=== PATIENT | female | born 1985 | race Caucasian/White ===

== ENCOUNTER 2017-10-08 20:57 | Outpatient (CLI) | payer MEDICAID ==
[2017-10-08] MEDS: LACTATED RINGER'S 1,000 ML IV ×2 (22:04→22:45)
[2017-10-08] MEDS: ACETAMINOPHEN 325 MG TAB PO (22:16)
[2017-10-08 23:21] LABS: ADD MAN DIFF? NO
[2017-10-08 23:25] LABS: WHITE BLOOD COUNT 10.7 10^3/ul (4.8-10.8)
[2017-10-08 23:25] LABS: BASOPHILS % 0.4 % (0.0-2.0); EOSINOPHILS # 0.1 10^3/ul (0.0-0.5); EOSINOPHILS % 1.2 % (0.0-7.0); HEMATOCRIT 32.2 % (37.0-47.0); HEMOGLOBIN 10.9 g/dl (12.0-16.0); LYMPHOCYTES # 0.7 10^3/ul (0.8-2.9); LYMPHOCYTES % 6.6 % (15.0-51.0); MEAN CORPUSCULAR HGB CONC 33.9 g/dl (32.0-37.0); MEAN CORPUSCULAR VOLUME 91.5 fl (82.0-101.0); MONOCYTE # 0.7 10^3/ul (0.3-0.9); MONOCYTES % 6.2 % (0.0-11.0); NEUTROPHIL # 9.1 10^3/ul (1.6-7.5); NEUTROPHILS % 84.5 % (39.0-77.0); PLATELET COUNT 271 10^3/UL (140-415); RED BLOOD COUNT 3.52 10^6/ul (4.20-5.40); RED CELL DISTRIBUTION WIDTH 12.8 % (11.5-14.5)
[2017-10-08 23:32] LABS: ADD UMIC YES; UR ASCORBIC ACID NEGATIVE (NEGATIVE); UR BACTERIA FEW /HPF (NONE SEEN); UR BILIRUBIN (Dip) NEGATIVE (NEGATIVE); UR BLOOD (Dip) NEGATIVE (NEGATIVE); UR CLARITY SLIGHTLY CLOUDY (CLEAR); UR COLOR YELLOW (YELLOW); UR GLUCOSE (Dip) NEGATIVE (NEGATIVE); UR KETONES (Dip) NEGATIVE (NEGATIVE); UR LEUKOCYTE ESTERASE (Dip) 1+ Leu/ul (NEGATIVE); UR MUCUS FEW /HPF (NONE SEEN); UR NITRITE (Dip) NEGATIVE (NEGATIVE); UR RBC 0 /HPF (0-5); UR SQUAMOUS EPITHELIAL CELL FEW /HPF (FEW); UR TOTAL PROTEIN (Dip) NEGATIVE (NEGATIVE); UR UROBILINOGEN (Dip) NEGATIVE (NEGATIVE); UR WBC 4 /HPF (0-5)
[2017-10-08 23:55] LABS: ALANINE AMINOTRANSFERASE 36 IU/L (13-69); ALBUMIN 3.5 g/dl (3.3-4.9); ALBUMIN/GLOBULIN RATIO 1.09; ALKALINE PHOSPHATASE 148 IU/L (42-121); ANION GAP 13 (8-16); ASPARTATE AMINO TRANSFERASE 25 IU/L (15-46); BILIRUBIN,INDIRECT 0.4 mg/dl (0-1.1); BILIRUBIN,TOTAL 0.4 mg/dl (0.2-1.3); BLOOD UREA NITROGEN 7 mg/dl (7-20); CALCIUM 8.5 mg/dl (8.4-10.2); CARBON DIOXIDE 24 mmol/L (21-31); CHLORIDE 104 mmol/L (97-110); CREATININE 0.69 mg/dl (0.44-1.00); GLUCOSE 85 mg/dl (70-220); POTASSIUM 3.8 mmol/L (3.5-5.1); SODIUM 137 mmol/L (135-144); TOTAL PROTEIN 6.7 g/dl (6.1-8.1)
== END 2017-10-09 01:13 | disposition home or self-care (01) ==
LOC: OBT 20:57 → L-D 20:59
DX: O26.892 Other specified pregnancy related conditions, second trimester (principal); Z3A.28 28 weeks gestation of pregnancy; R50.9 Fever, unspecified
CPT/HCPCS: 36415; 76818; 80053; 81001; 85025; 87040; 87086; 96360; 96361

== ENCOUNTER 2017-10-10 19:05 | Outpatient (CLI) | payer MEDICAID ==
[2017-10-10] MEDS: LACTATED RINGER'S 1,000 ML IV ×2 (20:02→20:56)
[2017-10-10] MEDS: ACETAMINOPHEN 325 MG TAB PO (20:04)
[2017-10-10] MEDS: AZITHROMYCIN 500MG/NS (PMX) 250 ML IVPB (23:34)
[2017-10-11] MEDS: ACETAMINOPHEN 325 MG TAB PO (00:03)
[2017-10-11] MEDS: GUAIFENESIN/DM 5ML CUP PO (00:57)
== END 2017-10-11 02:06 | disposition home or self-care (01) ==
LOC: OBT 19:05 → L-D 19:07
DX: O26.892 Other specified pregnancy related conditions, second trimester (principal); Z3A.28 28 weeks gestation of pregnancy; J06.9 Acute upper respiratory infection, unspecified; J11.1 Influenza due to unidentified influenza virus with other respiratory manifestations
CPT/HCPCS: 36415; 76818; 96360; 96361; 96366

== ENCOUNTER 2017-12-11 15:29 | Outpatient (CLI) | payer MEDICAID | END 2017-12-11 16:35 | disposition home or self-care (01) | LOC: OBT 15:29 → L-D 15:33 → OBT 16:35 | DX: O36.5930 Maternal care for other known or suspected poor fetal growth, third trimester, not applicable or unspecified (principal); Z3A.37 37 weeks gestation of pregnancy | CPT/HCPCS: 76815; 76818 ==

== ENCOUNTER 2017-12-24 12:19 | Outpatient (CLI) | payer MEDICAID ==
[2017-12-24] MEDS: TERBUTALINE 1 MG/ML INJ SC (13:23)
== END 2017-12-24 15:02 | disposition home or self-care (01) ==
LOC: OBT 12:19 → L-D 12:20 → OBT 15:02
DX: O62.9 Abnormality of forces of labor, unspecified (principal); Z3A.37 37 weeks gestation of pregnancy
CPT/HCPCS: 36415; 76818; 96372

== ENCOUNTER 2017-12-26 03:55 | Inpatient (IN) | payer MEDICAID ==
[2017-12-26] MEDS ORDERED: OXYTOCIN 30 UNITS/LR 500 ML IV (04:30)
[2017-12-26] MEDS ORDERED: IBUPROFEN 600 MG TAB PO (04:30)
[2017-12-26] MEDS ORDERED: CARBOPROST 250 MCG INJ IM (04:30)
[2017-12-26] MEDS ORDERED: BUTORPHANOL 2 MG INJ IV (04:30)
[2017-12-26] MEDS ORDERED: MISOPROSTOL 200 MCG TAB PR (04:30)
[2017-12-26] MEDS ORDERED: METHYLERGONOVINE 0.2 MG INJ IM (04:30)
[2017-12-26] MEDS ORDERED: LIDOCAINE 1% (MPF) 30 ML INJ INJ (04:30)
[2017-12-26 04:56] LABS: ADD MAN DIFF? NO
[2017-12-26 04:58] LABS: BASOPHILS % 0.3 % (0.0-2.0); EOSINOPHILS # 0.1 10^3/ul (0.0-0.5); EOSINOPHILS % 0.7 % (0.0-7.0); HEMATOCRIT 38.2 % (37.0-47.0); HEMOGLOBIN 12.8 g/dl (12.0-16.0); LYMPHOCYTES # 2.2 10^3/ul (0.8-2.9); LYMPHOCYTES % 19.5 % (15.0-51.0); MEAN CORPUSCULAR HEMOGLOBIN 30.5 pg (29.0-33.0); MEAN CORPUSCULAR HGB CONC 33.5 g/dl (32.0-37.0); MONOCYTE # 0.6 10^3/ul (0.3-0.9); MONOCYTES % 5.3 % (0.0-11.0); NEUTROPHIL # 8.4 10^3/ul (1.6-7.5); NEUTROPHILS % 73.8 % (39.0-77.0); PLATELET COUNT 283 10^3/UL (140-415); RED CELL DISTRIBUTION WIDTH 13.7 % (11.5-14.5)
[2017-12-26 04:58] LABS: WHITE BLOOD COUNT 11.4 10^3/ul (4.8-10.8)
[2017-12-26] MEDS: LACTATED RINGER'S 1,000 ML IV ×3 (05:04→05:58)
[2017-12-26] MEDS: AMPICILLIN 2 GM/NS (PMX) 100 ML IV (05:05)
[2017-12-26 05:18] LABS: INR 0.86; PARTIAL THROMBOPLASTIN TIME 26.9 Sec (25.0-35.0); PROTIME 11.8 Sec (11.9-14.9); PT RATIO 0.9
[2017-12-26] MEDS ORDERED: FENTAnyl 2MCG/ML-ROPIV 0.2% 100 ML (05:43)
[2017-12-26] MEDS ORDERED: HYDROmorphONE 0.5 MG/0.5 ML SYG IV ×2 (06:00)
[2017-12-26] MEDS ORDERED: ZOLPIDEM 5 MG TAB PO (06:00)
[2017-12-26] MEDS ORDERED: KETOROLAC 30 MG INJ IV (06:00)
[2017-12-26] MEDS ORDERED: FENTAnyl 2MCG/ML-ROPIV 0.2% 100 ML BAG EPI (06:00)
[2017-12-26] MEDS ORDERED: DIPHENHYDRAMINE 50 MG INJ IV (06:00)
[2017-12-26] MEDS ORDERED: ONDANSETRON 4 MG INJ IV ×2 (06:00→10:30)
[2017-12-26] MEDS ORDERED: NALOXONE (0.4 MG/ML) INJ IV (06:00)
[2017-12-26] MEDS: OXYTOCIN 30 UNITS/LR 500 ML IV ×3 (06:25→12:00)
[2017-12-26] MEDS ORDERED: AMPICILLIN 1 GM/NS (PMX) 50 ML IV (09:00)
[2017-12-26] MEDS ORDERED: HYDROCODONE/APAP (5/325) TAB PO ×2 (10:30)
[2017-12-26] MEDS ORDERED: ACETAMINOPHEN 325 MG TAB PO (10:30)
[2017-12-26] MEDS ORDERED: OXYCODONE/ASPIRIN (4.88/325) TAB PO ×2 (10:30)
[2017-12-26] MEDS: IBUPROFEN 600 MG TAB PO ×2 (11:48→17:43)
[2017-12-26] MEDS: LANOLIN 7 GM TUBE TOP (19:27)
[2017-12-26] MEDS: DIBUCAINE 1% 30 GM OINT PR (19:27)
[2017-12-26] MEDS: WITCH HAZEL/GLYCERIN PAD PR (19:27)
[2017-12-26] MEDS: BENZOCAINE 20% 56 ML SPRAY TOP (19:27)
[2017-12-26] MEDS: SENNA/DOCUSATE NA (8.6MG/50MG) TAB PO (21:05)
[2017-12-26 22:15] LABS: RAPID PLASMA REAGIN NONREACTIVE (NR)
[2017-12-27] MEDS: IBUPROFEN 600 MG TAB PO ×4 (06:06→17:56)
[2017-12-27 07:22] LABS: ADD MAN DIFF? NO
[2017-12-27 07:39] LABS: BASOPHILS % 0.4 % (0.0-2.0); EOSINOPHILS # 0.1 10^3/ul (0.0-0.5); EOSINOPHILS % 1.1 % (0.0-7.0); HEMATOCRIT 34.8 % (37.0-47.0); HEMOGLOBIN 11.5 g/dl (12.0-16.0); LYMPHOCYTES # 2.9 10^3/ul (0.8-2.9); LYMPHOCYTES % 28.8 % (15.0-51.0); MEAN CORPUSCULAR HEMOGLOBIN 30.6 pg (29.0-33.0); MEAN CORPUSCULAR VOLUME 92.6 fl (82.0-101.0); MEAN PLATELET VOLUME 9.3 fl (7.4-10.4); MONOCYTE # 0.5 10^3/ul (0.3-0.9); MONOCYTES % 4.6 % (0.0-11.0); NEUTROPHIL # 6.5 10^3/ul (1.6-7.5); NEUTROPHILS % 64.5 % (39.0-77.0); PLATELET COUNT 250 10^3/UL (140-415); RED BLOOD COUNT 3.76 10^6/ul (4.20-5.40); RED CELL DISTRIBUTION WIDTH 13.9 % (11.5-14.5)
[2017-12-27 07:39] LABS: WHITE BLOOD COUNT 10.1 10^3/ul (4.8-10.8)
[2017-12-27] MEDS: SENNA/DOCUSATE NA (8.6MG/50MG) TAB PO ×2 (09:57→21:15)
[2017-12-28] MEDS: IBUPROFEN 600 MG TAB PO ×3 (00:25→11:54)
[2017-12-28] MEDS: SENNA/DOCUSATE NA (8.6MG/50MG) TAB PO (08:50)
[2017-12-28] MEDS: MEASLES,MUMPS,RUBELLA VACCINE INJ SC* (09:00)
== END 2017-12-28 13:10 | disposition home or self-care (01) | DRG 775 ==
LOC: OBT 03:55 → L-D 03:55 → OBT 04:26 → L-D 04:26 → PP1 09:23
PROVIDERS: Obstetrics & Gynecology
PROC: 10E0XZZ Delivery of Products of Conception, External Approach (ICD-10-PCS; principal; 2017-12-26)
PROC: 0HQ9XZZ Repair Perineum Skin, External Approach (ICD-10-PCS; 2017-12-26)
PROC: 3E033VJ Introduction of Other Hormone into Peripheral Vein, Percutaneous Approach (ICD-10-PCS; 2017-12-26)
DX: O70.0 First degree perineal laceration during delivery (principal); Z3A.38 38 weeks gestation of pregnancy; Z37.0 Single live birth
CPT/HCPCS: 62319; 85025; 85610; 85730; 86592; 86850; 86900; 86901